=== PATIENT | male | born 1980 | race African-American/Black ===

== ENCOUNTER 2017-02-01 16:27 | Emergency (ER) | payer SELFPAY ==
[~2017-02-01] VITALS: Ht 165.1 cm; Wt 63.0 kg
[2017-02-01 16:53] VITALS: BP 139/86
== END 2017-02-01 17:51 | disposition left against medical advice (07) ==
LOC: EME 16:27
DX: R21 Rash and other nonspecific skin eruption (principal); Z53.21 Procedure and treatment not carried out due to patient leaving prior to being seen by health care provider

== ENCOUNTER 2017-02-06 14:02 | Emergency (ER) | payer OTHER ==
[~2017-02-06] VITALS: Ht 162.6 cm; Wt 63.0 kg
[2017-02-06] MEDS ORDERED: BENADRYL25 MG PO (14:37)
[2017-02-06] MEDS ORDERED: PEPCID20 MG PO (14:37)
[2017-02-06 15:04] VITALS: BP 136/55
== END 2017-02-06 15:13 | disposition home or self-care (01) ==
LOC: EME 14:02
DX: L25.9 Unspecified contact dermatitis, unspecified cause (principal); F17.200 Nicotine dependence, unspecified, uncomplicated
CPT/HCPCS: 99281; 99283; J1100

== ENCOUNTER 2017-02-12 18:21 | Emergency (ER) | payer OTHER ==
[~2017-02-12] VITALS: Ht 162.6 cm; Wt 61.6 kg
[~2017-02-12 18:21] MED LIST: BENADRYL25 MG PO; PEPCID20 MG PO
[2017-02-12 19:45] VITALS: BP 146/95
[2017-02-14 12:39] LABS: CHLAMYDIA TRACHOMATIS NEGATIVE; NEISSERIA GONORRHOEAE NEGATIVE
== END 2017-02-12 19:46 | disposition home or self-care (01) ==
LOC: EME 18:21
PROVIDERS: Physician Assistant
DX: Z20.2 Contact with and (suspected) exposure to infections with a predominantly sexual mode of transmission (principal); F17.200 Nicotine dependence, unspecified, uncomplicated
CPT/HCPCS: 87491; 87591; 99281; 99284; J0696

== ENCOUNTER 2017-03-19 09:34 | Emergency (ER) | payer OTHER ==
[~2017-03-19] VITALS: Ht 165.1 cm; Wt 62.3 kg
[2017-03-19 13:08] LABS: APPEARANCE SL.HAZY ((CLEAR)); BILIRUBIN NEGATIVE; BLOOD NEGATIVE; COLOR YELLOW ((YELLOW)); GLUCOSE (STRIP) NEGATIVE; KETONES 20; LEUKOCYTES TRACE; NITRITE NEGATIVE; PROTEIN (STRIP) 30; SPECIFIC GRAVITY 1.036 (1.000-1.030)
[2017-03-19 13:15] LABS: HEMATOCRIT 45.7 % (38.0-50.0); HEMOGLOBIN 14.3 G/DL (12.5-16.6); MCH 23.2 PG (29.0-34.0); MCHC 31.3 G/DL (30.0-36.0); MCV 74.1 FL (86-99); RBC DIS.WIDTH-CV 14.7 % (11.8-14.6); RBC DIS.WIDTH-SD 38.1 % (39-53); RED BLOOD COUNT 6.17 M/uL (4.00-5.50)
[2017-03-19 13:34] LABS: BACTERIA NONE SEEN /HPF; EPITHELIAL CELLS RARE /HPF; MUCUS 1+ /LPF; RED BLOOD CELLS NONE SEEN /HPF (0-5); UCUL ADDED? NO; WHITE BLOOD CELLS 0-5 /HPF (0-5)
[2017-03-19 13:55] LABS: PLATELET COUNT 206 K/uL (156-360)
[2017-03-19 14:38] LABS: ALBUMIN 4.5 g/dL (3.2-4.8); CHLORIDE 107 mEq/L (99-109); SODIUM 140 mEq/L (136-147)
[2017-03-19 14:41] LABS: GLUCOSE 151 mg/dL (70-99); TOTAL PROTEIN 7.7 g/dL (6.4-8.3)
[2017-03-19 14:42] LABS: TOTAL BILIRUBIN 0.5 mg/dL (0.0-1.0)
[2017-03-19 14:43] LABS: SERUM ETHYL ALCOHOL < 10 mg/dL
[2017-03-19 14:44] LABS: CREATININE 1.2 mg/dL (0.6-1.3); GFR ESTIMATE (CALCULATED) > 59 mL/min/ (58.99-99999)
[2017-03-19 14:45] LABS: ALKALINE PHOSPHATASE 52 IU/L (3-129)
[2017-03-19 14:46] LABS: AST (GOT) 23 IU/L (2-34); UREA NITROGEN (BUN) 16 mg/dL (9-23)
[2017-03-19 14:48] LABS: ACETAMINOPHEN (TYLENOL) < 10 mcg/mL (10-30); ALT (GPT) 22 IU/L (3-49); CREATINE KINASE 114 IU/L (1-294); SALICYLATE < 5.0 MG/DL (15-30)
[2017-03-19] MEDS ORDERED: ZOFRAN ODT4 MG PO (16:10)
[2017-03-19 16:28] VITALS: BP 139/85
[2017-03-19 16:33] LABS: COCAINE NEGATIVE (150 ng/mL); PHENCYCLIDINE NEGATIVE (25 ng/mL); THC CANNABINOIDS PRESUMPTIVE POSITIVE (50 ng/mL)
[2017-03-19 16:34] LABS: AMPHETAMINE NEGATIVE (500 ng/mL); BARBITURATES NEGATIVE (200 ng/mL); BENZODIAZEPINES NEGATIVE (150 ng/mL); BUPRENORPHINE NEGATIVE (10 ng/mL); METHADONE PRESUMPTIVE POSITIVE (200 ng/mL); METHAMPHETAMINE NEGATIVE (500 ng/mL); OPIATES (MORPHINE) PRESUMPTIVE POSITIVE (100 ng/mL); OXYCODONE NEGATIVE (100 ng/mL); PROPOXYPHENE NEGATIVE (300 ng/mL); TRICYCLIC ANTIDEPRESSANTS NEGATIVE (300 ng/mL)
== END 2017-03-19 16:29 | disposition home or self-care (01) ==
LOC: EME 09:34
PROVIDERS: Nurse Practitioner Family
DX: F11.23 Opioid dependence with withdrawal (principal); F17.200 Nicotine dependence, unspecified, uncomplicated
CPT/HCPCS: 80048; 80053; 81003; 82550; 84999; 85027; 99281; 99284; G0480